=== PATIENT | male | born 1995 | race Caucasian/White ===

== ENCOUNTER 2021-12-03 14:39 | Emergency (ER) | payer BC, OTHER ==
[~2021-12-03] VITALS: Ht 172.7 cm; Wt 109.8 kg
[2021-12-03 14:49] VITALS: BP 125/63
== END 2021-12-03 17:56 | disposition left against medical advice (07) ==
LOC: MED 14:39
DX: R07.89 Other chest pain (principal); Z53.21 Procedure and treatment not carried out due to patient leaving prior to being seen by health care provider
CPT/HCPCS: 93005; 99281